=== PATIENT | female | born 1980 | race Caucasian/White ===

== ENCOUNTER → 2017-09-18 11:46 | Outpatient (CLI) | payer OTHER, MEDICAID, SELFPAY ==
[2017-09-18 13:05] LABS: Add Manual Diff / Slide Review NO; Basophils Percent Auto 1.1 % (0-2); Eosinophils Percent Auto 1.3 % (2-4); Hematocrit 41.8 % (36-46); Lymphocytes Percent Auto 26.9 % (25-40); Mean Corpuscular HGB Conc 33.6 % (30-36); Mean Corpuscular Hemoglobin 29.6 PG (26-34); Monocytes Percent Auto 4.8 % (3-14); Neutrophils Absolute Auto 5500 /uL (3000-5900); Neutrophils Percent Auto 65.9 % (50-75); Platelet Count 475 X10^3/uL (150-400); Red Blood Cell Count 4.75 X10^6/uL (4.0-5.2); Red Cell Distribution Width 14.1 % (11.6-14.8); White Blood Cell Count 8.4 X10^3/uL (4.5-11.0)
[2017-09-18 13:21] LABS: Alanine Aminotransferase 21 IU/L (9-52); Albumin 4.4 g/dL (3.5-5.0); Albumin Globulin Ratio 1.1 (1.0-2.8); Alkaline Phosphatase 74 U/L (38-126); Aspartate Aminotransferase 20 IU/L (14-36); BUN Creatinine Ratio 13.3 (6-22); Bilirubin Total 0.4 mg/dL (0.2-1.3); Blood Urea Nitrogen 8 mg/dL (7-17); Calcium 9.8 mg/dL (8.4-10.2); Carbon Dioxide 26 mmol/L (22-32); Chloride 104 mmol/L (98-107); Estimated Glomerular Filt Rate > 60.0 mL/min (>60); Globulin 3.9 g/dL (1.7-4.1); Glucose 119 mg/dL (70-100); HEMOLYSIS 17 (0-50); Potassium 4.2 mmol/L (3.4-5.1); Sodium 142 mmol/L (137-145); Total Protein 8.3 g/dL (6.3-8.2)
[2017-09-18 13:24] LABS: C-Reactive Protein Quant < 0.5 mg/dL (<1.0)
[2017-09-18 13:54] LABS: Erythrocyte Sedimentation Rate 27 MM/HR (0-20)
[2017-09-18 15:40] LABS: TSH w/ Reflex to FT4 1.29 uIU/mL (0.47-4.68)
== END ==
PROVIDERS: Family Provider Family Medicine; PCP Family Medicine; Visit Provider Family Medicine
DX: R52 Pain, unspecified (principal)
CPT/HCPCS: 36415; 80053; 84443; 85025; 85651; 86140

== ENCOUNTER 2018-04-30 15:35 | Emergency (ER) | payer OTHER, MEDICAID, SELFPAY ==
[2018-04-30 15:45] VITALS: BP 147/90; PULSE 96; RESP 14; TEMP 36.8; O2SAT 100
--- NOTE | 2018-04-30 16:32 | ED.BACK ---
HPI - Back Pain/Injury <Emily Villalobos PA-C - Last Filed: 04/30/18 21:50> General Chief Complaint: Back Pain/Injury Stated Complaint: spine feels like its tingling x4-5 days Time Seen by Provider: 04/30/18 16:16 Source: patient Mode of arrival: ambulatory Limitations: no limitations History of Present Illness HPI Narrative: This 38-year-old female comes to ED today due to persistent tingling and pain in her back along with a hard time walking for about 6 days. She states that she kind of feels like her left leg is numb or asleep and that she is dragging it, which makes her unstable when she walks. She states that the pain in her back seems focused between her lower shoulder blades, however it can radiate up into her upper back or down into her tailbone, tends to stay in the midline. She states that she can have pain down her left leg as well. She denies acute bowel or bladder changes and has been urinating normally. She denies any numbness in the groin. She denies any new fever or rash. No new joint swelling. She states that she does have history of multiple herniated discs in her back, not sure which levels but thinks in her low back. She has cervical and lumbar degenerative disc disease. She states that the symptoms have some resemblance to previous sciatica though typically have not lasted this long. She denies any new trauma at all. She states that she has felt somewhat dizzy or off balance when she goes to get up, a little bit like vertigo but she also feels like her legs make her unstable so difficult for her to tell. She has chronic migraine and unrelenting daily headache and tends to have some intermittent left-sided facial numbness with these. No acute changes. She states that she came in today mainly due to pain. She has been taking her gabapentin as well as acetaminophen at home and using ice and this is not helping. She notes that she has been following some of these issues with her PCP and is seeing Neurology and also referred to Rheumatology. She states that she has been question about MS in past but has not had workup. Related Data Home Medications Medication Instructions Recorded Confirmed [PHENERGAN] 25 mg PO PRN PRN #0 05/06/16 amitriptyline 25 mg PO HS #0 05/06/16 cyclobenzaprine 10 mg PO PRN PRN #0 05/06/16 nortriptyline [Pamelor] 30 mg PO HS #0 10/19/16 prochlorperazine maleate 10 mg PO PRN PRN #0 10/19/16 [Compazine] gabapentin [Neurontin] 300 mg PO TID #0 12/18/16 cholecalciferol (vitamin D3) 5,000 unit PO QDAY #0 04/19/17 oxybutynin chloride [Ditropan XL] 15 mg PO QDAY #0 04/19/17 Previous Rx's Medication Instructions Recorded dicyclomine 10 mg PO Q4HP PRN #60 cap 10/19/16 meloxicam 15 mg PO DAILY #20 tab 04/30/18 oxycodone-acetaminophen 1 tab PO Q6H PRN #7 tab 04/30/18 Allergies Allergy/AdvReac Type Severity Reaction Status Date / Time Sulfa (Sulfonamide Allergy Severe HIVES, Unverified 07/07/17 12:40 Antibiotics) ITCHY [SULFA (SULFONAMIDE THROAT ANTIBIOTICS)] FEELS LIKE IT WILL CLOSE UP hydrocodone [From VICODIN] AdvReac Intermediate DOESN'T Unverified 07/07/17 12:40 GIVE PAIN RELIEF, SEVERE NAUSEA Review of Systems <Emily Villalobos PA-C - Last Filed: 04/30/18 21:50> Review of Systems ROS Unobtainable: All systems reviewed & are unremarkable except as noted in HPI and below Exam <Emily Villalobos PA-C - Last Filed: 04/30/18 21:50> Narrative Exam Narrative: GENERAL APPEARANCE: Patient sitting comfortably, in no distress. HEENT: PERRL, EOMI, normal TMs and oropharynx, no sinus TTP NECK: Supple LUNGS: Clear to auscultation bilaterally. HEART: Rate and rhythm regular without murmur, normal S1 and S2, no S3 or S4. NEUROLOGIC: cranial nerves III-XII grossly intact, Alert and oriented, normal speech, and coordination. upper and lower extremity DTRs 2+ throughout the MUSCULOSKELETAL: Full Csp AROM without tenderness. Tender throughout the midthoracic and lumbar spine and musculature. Normal trunk flexion. 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 She lifts the left leg with her hands to flex her hip and swing the leg over the bed, but is able to put it back on the bed unassisted. Lower extremity strength 5/5 throughout bilateral hip flexors, knee extensors, foot plantar flexion. Positive left modified straight leg raise. DERMATOLOGIC: No exanthem Initial Vital Signs Initial Vital Signs: Vital Signs Temperature 98.2 F 04/30/18 15:45 Pulse Rate 96 H 04/30/18 15:45 Respiratory Rate 14 04/30/18 15:45 Blood Pressure 147/90 H 04/30/18 15:45 Pulse Oximetry 100 04/30/18 15:45 <Rex Flores DO - Last Filed: 05/01/18 07:14> Initial Vital Signs Initial Vital Signs: Vital Signs Temperature 98.2 F 04/30/18 15:45 Pulse Rate 96 H 04/30/18 15:45 Respiratory Rate 14 04/30/18 15:45 Blood Pressure 147/90 H 04/30/18 15:45 Pulse Oximetry 100 04/30/18 15:45 Course <Emily Villalobos PA-C - Last Filed: 04/30/18 21:50> Additional Information: Reviewed exam findings today with Dr. Flores, neurologically normal, consistent with left-sided sciatica. Prior to departure she is feeling improved and sitting in a chair. Discussed with patient following up with Neurology and evaluation for MS given her ongoing symptoms, and apparently this has been discussed with her already. No acute findings in her labwork aside from mild ESR elevation which she states is chronic. We decided to help with pain management over the weekend, and she will follow up with PCP on Wednesday and also talk with her neurologist. She agreed to return if any acutely worsening symptoms over the weekend, or concerning symptoms such as groin numbness or urinary retention. Orders Ordered: Discontinued Medications Ketorolac Tromethamine (Toradol) 60 mg IM NOW ONE Stop: 04/30/18 16:50 Last Admin: 04/30/18 17:02 Dose: 60 mg Oxycodone/Acetaminophen (Percocet 5/325) 1 tab PO NOW ONE Stop: 04/30/18 16:58 Last Admin: 04/30/18 17:02 Dose: 1 tab Oxycodone/Acetaminophen (Endocet 5/325 Prepack) 1 bottle MISC SEEINSTR ONE Stop: 04/30/18 18:53 Last Admin: 04/30/18 19:24 Dose: 1 bottle Vital Signs - 8 hr 04/30/18 15:45 04/30/18 17:30 04/30/18 18:30 Temperature 98.2 F Pulse Rate 96 H 80 Respiratory Rate 14 16 Blood Pressure 147/90 H Blood Pressure [Left Arm] 111/71 123/79 Pulse Oximetry 100 98 04/30/18 18:58 Temperature Pulse Rate 89 Respiratory Rate 18 Blood Pressure Blood Pressure [Left Arm] 123/79 Pulse Oximetry 97 <Rex Flores DO - Last Filed: 05/01/18 07:14> Orders Ordered: Discontinued Medications Ketorolac Tromethamine (Toradol) 60 mg IM NOW ONE Stop: 04/30/18 16:50 Last Admin: 04/30/18 17:02 Dose: 60 mg Oxycodone/Acetaminophen (Percocet 5/325) 1 tab PO NOW ONE Stop: 04/30/18 16:58 Last Admin: 04/30/18 17:02 Dose: 1 tab Oxycodone/Acetaminophen (Endocet 5/325 Prepack) 1 bottle MISC SEEINSTR ONE Stop: 04/30/18 18:53 Last Admin: 04/30/18 19:24 Dose: 1 bottle Vital Signs - 8 hr 04/30/18 15:45 04/30/18 17:30 04/30/18 18:30 Temperature 98.2 F Pulse Rate 96 H 80 Respiratory Rate 14 16 Blood Pressure 147/90 H Blood Pressure [Left Arm] 111/71 123/79 Pulse Oximetry 100 98 04/30/18 18:58 Temperature Pulse Rate 89 Respiratory Rate 18 Blood Pressure Blood Pressure [Left Arm] 123/79 Pulse Oximetry 97 MDM - Back Pain/Injury <Emily Villalobos PA-C - Last Filed: 04/30/18 21:50> Lab Data Result diagrams: 04/30/18 17:10 04/30/18 17:10 Lab Results 04/30/18 04/30/18 Range/Units 17:10 17:10 WBC 8.6 (4.5-11.0) X10^3/uL RBC 4.85 (4.0-5.2) X10^6/uL Hgb 14.3 (12.0-16.0) g/dL Hct 43.3 (36-46) % MCV 89.2 (80-100) fL MCH 29.6 (26-34) PG MCHC 33.1 (30-36) % RDW 13.9 (11.6-14.8) % Plt Count 450 H (150-400) X10^3/uL Neut % (Auto) 62.5 (50-75) % Lymph % (Auto) 27.8 (25-40) % [place] % (Auto) 7.8 (3-14) % Eos % (Auto) 0.8 L (2-4) % Baso % (Auto) 1.1 (0-2) % Neut # (Auto) 5400 (9256-8443) /uL Lymph # (Auto) 2400 (1635-5034) /uL [place] # (Auto) 700 (0-900) /uL Eos # (Auto) 100 (0-450) /uL Baso # (Auto) 100 (0-100) /uL ESR 37 H (0-20) MM/HR Sodium 140 (137-145) mmol/L Potassium 4.0 (3.4-5.1) mmol/L Chloride 106 (98-107) mmol/L Carbon Dioxide 22 (22-32) mmol/L BUN 9 (7-17) mg/dL Creatinine 0.60 (0.52-1.04) mg/dL Estimated GFR > 60.0 (>60) mL/min BUN/Creatinine Ratio 15.0 (6-22) Glucose 100 (70-100) mg/dL Calcium 10.0 (8.4-10.2) mg/dL Total Bilirubin 0.3 (0.2-1.3) mg/dL AST 19 (14-36) IU/L ALT 21 (9-52) IU/L Alkaline Phosphatase 76 (38-126) U/L C-Reactive Protein < 0.5 (<1.0) mg/dL Total Protein 8.4 H (6.3-8.2) g/dL Albumin 4.6 (3.5-5.0) g/dL Globulin 3.8 (1.7-4.1) g/dL Albumin/Globulin Ratio 1.2 (1.0-2.8) <Rex Flores DO - Last Filed: 05/01/18 07:14> Lab Data Lab Results 04/30/18 04/30/18 Range/Units 17:10 17:10 WBC 8.6 (4.5-11.0) X10^3/uL RBC 4.85 (4.0-5.2) X10^6/uL Hgb 14.3 (12.0-16.0) g/dL Hct 43.3 (36-46) % MCV 89.2 (80-100) fL MCH 29.6 (26-34) PG MCHC 33.1 (30-36) % RDW 13.9 (11.6-14.8) % Plt Count 450 H (150-400) X10^3/uL Neut % (Auto) 62.5 (50-75) % Lymph % (Auto) 27.8 (25-40) % [place] % (Auto) 7.8 (3-14) % Eos % (Auto) 0.8 L (2-4) % Baso % (Auto) 1.1 (0-2) % Neut # (Auto) 5400 (4368-5014) /uL Lymph # (Auto) 2400 (9978-7514) /uL [place] # (Auto) 700 (0-900) /uL Eos # (Auto) 100 (0-450) /uL Baso # (Auto) 100 (0-100) /uL ESR 37 H (0-20) MM/HR Sodium 140 (137-145) mmol/L Potassium 4.0 (3.4-5.1) mmol/L Chloride 106 (98-107) mmol/L Carbon Dioxide 22 (22-32) mmol/L BUN 9 (7-17) mg/dL Creatinine 0.60 (0.52-1.04) mg/dL Estimated GFR > 60.0 (>60) mL/min BUN/Creatinine Ratio 15.0 (6-22) Glucose 100 (70-100) mg/dL Calcium 10.0 (8.4-10.2) mg/dL Total Bilirubin 0.3 (0.2-1.3) mg/dL AST 19 (14-36) IU/L ALT 21 (9-52) IU/L Alkaline Phosphatase 76 (38-126) U/L C-Reactive Protein < 0.5 (<1.0) mg/dL Total Protein 8.4 H (6.3-8.2) g/dL Albumin 4.6 (3.5-5.0) g/dL Globulin 3.8 (1.7-4.1) g/dL Albumin/Globulin Ratio 1.2 (1.0-2.8) Discharge Plan Departure Patient Disposition: Home Clinical Impression: Multilevel spine pain, Sciatica, Paresthesia Discharge Date/Time: 04/30/18 19:30 Interventions: ED Discharge Assessment Last Done: 04/30/18 19:30 Instructions: DI for Back Pain With Sciatica, DI for Numbness/tingling Activity Restrictions/Additional Instructions: Please return as we talked about if you have acutely worsening symptoms. The source of your pain is not exactly clear. Neurologically, you appears stable but it seems most like the pain is from a nerve source. As you have talked about previously, it is certainly reasonable to evaluate for MS, so please talk with your neurologist about this. Since you are feeling a little bit more comfortable now, I think it is okay to continue pain medicine and monitor this weekend. 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 Please try this since ibuprofen has not been effective. I have also prescribed a little bit Percocet for you to have until you can talk with your PCP on Wednesday. You may also take an additional gabapentin this evening to see if that is helpful, and you can continue an additional 1 daily if that seems to help your pain. Please remember that these medicines can make you sleepy and not to drive while taking them. Prescriptions: New meloxicam 15 mg tablet 15 mg PO DAILY Qty: 20 RF: 0 oxycodone-acetaminophen 5-325 mg tablet 1 tab PO Q6H PRN (Reason: acute back pain/sciatica) Qty: 7 RF: 0 No Action cyclobenzaprine 10 MG tablet 10 mg PO PRN PRNQty: 0 RF: 0 amitriptyline 25 MG tablet 25 mg PO HS Qty: 0 RF: 0 [PHENERGAN] 25 mg PO PRN PRNQty: 0 RF: 0 prochlorperazine maleate [Compazine] 10 MG tablet 10 mg PO PRN PRNQty: 0 RF: 0 nortriptyline [Pamelor] 10 MG capsule 30 mg PO HS Qty: 0 RF: 0 dicyclomine 10 MG capsule 10 mg PO Q4HP PRNQty: 60 RF: 3 gabapentin [Neurontin] 300 MG capsule 300 mg PO TID Qty: 0 RF: 0 oxybutynin chloride [Ditropan XL] 15 MG tablet extended release 24hr 15 mg PO QDAY Qty: 0 RF: 0 cholecalciferol (vitamin D3) 5,000 UNIT capsule 5,000 unit PO QDAY Qty: 0 RF: 0 Referrals: Genevieve Boroke MD [Primary Care Provider] - Chencho Ornelas MD [Non-Staff] - <eRx Flores DO - Last Filed: 05/01/18 07:14> Cosign ED Attending Audraature Attestation: I was available for consultation during this patient's emergency department encounter
[2018-04-30] MEDS: OXYCODONE/ACETAMINOPHEN 5/325 TABLET 1 TAB PO (17:02)
[2018-04-30] MEDS: KETOROLAC 60 MG/2 ML VIAL IM (17:02)
--- NOTE | 2018-04-30 17:21 | ED_ITS ---
HPI - Back Pain/Injury <Emily Villalobos PA-C - Last Filed: 04/30/18 21:50> General Chief Complaint: Back Pain/Injury Stated Complaint: spine feels like its tingling x4-5 days Time Seen by Provider: 04/30/18 16:16 Source: patient Mode of arrival: ambulatory Limitations: no limitations History of Present Illness HPI Narrative: This 38-year-old female comes to ED today due to persistent tingling and pain in her back along with a hard time walking for about 6 days. She states that she kind of feels like her left leg is numb or asleep and that she is dragging it, which makes her unstable when she walks. She states that the pain in her back seems focused between her lower shoulder blades , however it can radiate up into her upper back or down into her tailbone, tends to stay in the midline. She states that she can have pain down her left leg as well. She denies acute bowel or bladder changes and has been urinating normally. She denies any numbness in the groin. She denies any new fever or rash. No new joint swelling. She states that she does have history of multiple herniated discs in her back, not sure which levels but thinks in her low back. She has cervical and lumbar degenerative disc disease. She states that the symptoms have some resemblance to previous sciatica though typically have not lasted this long. She denies any new trauma at all. She states that she has felt somewhat dizzy or off balance when she goes to get up, a little bit like vertigo but she also feels like her legs make her unstable so difficult for her to tell. She has chronic migraine and unrelenting daily headache and tends to have some intermittent left-sided facial numbness with these. No acute changes. She states that she came in today mainly due to pain. She has been taking her gabapentin as well as acetaminophen at home and using ice and this is not helping. She notes that she has been following some of these issues with her PCP and is seeing Neurology and also referred to Rheumatology. She states that she has been question about MS in past but has not had workup. Related Data Home Medications Medication Instructions Recorded Confirmed [PHENERGAN] 25 mg PO PRN PRN #0 05/06/16 amitriptyline 25 mg PO HS #0 05/06/16 cyclobenzaprine 10 mg PO PRN PRN #0 05/06/16 nortriptyline [Pamelor] 30 mg PO HS #0 10/19/16 prochlorperazine maleate 10 mg PO PRN PRN #0 10/19/16 [Compazine] gabapentin [Neurontin] 300 mg PO TID #0 12/18/16 cholecalciferol (vitamin D3) 5,000 unit PO QDAY #0 04/19/17 oxybutynin chloride [Ditropan XL] 15 mg PO QDAY #0 04/19/17 Previous Rx's Medication Instructions Recorded dicyclomine 10 mg PO Q4HP PRN #60 cap 10/19/16 meloxicam 15 mg PO DAILY #20 tab 04/30/18 oxycodone-acetaminophen 1 tab PO Q6H PRN #7 tab 04/30/18 Allergies Allergy/AdvReac Type Severity Reaction Status Date / Time Sulfa (Sulfonamide Allergy Severe HIVES, Unverified 07/07/17 12:40 Antibiotics) ITCHY [SULFA (SULFONAMIDE THROAT ANTIBIOTICS)] FEELS LIKE IT WILL CLOSE UP hydrocodone [From VICODIN] AdvReac Intermediate DOESN'T Unverified 07/07/17 12: 40 GIVE PAIN RELIEF, SEVERE NAUSEA Review of Systems <Emily Villalobos PA-C - Last Filed: 04/30/18 21:50> Review of Systems ROS Unobtainable: All systems reviewed & are unremarkable except as noted in HPI and below Exam <Emily Villalobos PA-C - Last Filed: 04/30/18 21:50> Narrative Exam Narrative: GENERAL APPEARANCE: Patient sitting comfortably, in no distress. HEENT: PERRL, EOMI, normal TMs and oropharynx, no sinus TTP NECK: Supple LUNGS: Clear to auscultation bilaterally. HEART: Rate and rhythm regular without murmur, normal S1 and S2, no S3 or S4. NEUROLOGIC: cranial nerves III-XII grossly intact, Alert and oriented, normal speech, and coordination. upper and lower extremity DTRs 2+ throughout the MUSCULOSKELETAL: Full Csp AROM without tenderness. Tender throughout the midthoracic and lumbar spine and musculature. Normal trunk flexion. 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 She lifts the left leg with her hands to flex her hip and swing the leg over the bed, but is able to put it back on the bed unassisted. Lower extremity strength 5/5 throughout bilateral hip flexors, knee extensors, foot plantar flexion. Positive left modified straight leg raise. DERMATOLOGIC: No exanthem Initial Vital Signs Initial Vital Signs: Vital Signs Temperature 98.2 F 04/30/18 15:45 Pulse Rate 96 H 04/30/18 15:45 Respiratory Rate 14 04/30/18 15:45 Blood Pressure 147/90 H 04/30/18 15:45 Pulse Oximetry 100 04/30/18 15:45 <Rex Flores DO - Last Filed: 05/01/18 07:14> Initial Vital Signs Initial Vital Signs: Vital Signs Temperature 98.2 F 04/30/18 15:45 Pulse Rate 96 H 04/30/18 15:45 Respiratory Rate 14 04/30/18 15:45 Blood Pressure 147/90 H 04/30/18 15:45 Pulse Oximetry 100 04/30/18 15:45 Course <Emily Villalobos PA-C - Last Filed: 04/30/18 21:50> Additional Information: Reviewed exam findings today with Dr. Flores, neurologically normal, consistent with left-sided sciatica. Prior to departure she is feeling improved and sitting in a chair. Discussed with patient following up with Neurology and evaluation for MS given her ongoing symptoms, and apparently this has been discussed with her already. No acute findings in her labwork aside from mild ESR elevation which she states is chronic. We decided to help with pain management over the weekend, and she will follow up with PCP on Wednesday and also talk with her neurologist. She agreed to return if any acutely worsening symptoms over the weekend, or concerning symptoms such as groin numbness or urinary retention. Orders Ordered: Discontinued Medications Ketorolac Tromethamine (Toradol) 60 mg IM NOW ONE Stop: 04/30/18 16:50 Last Admin: 04/30/18 17:02 Dose: 60 mg Oxycodone/Acetaminophen (Percocet 5/325) 1 tab PO NOW ONE Stop: 04/30/18 16:58 Last Admin: 04/30/18 17:02 Dose: 1 tab Oxycodone/Acetaminophen (Endocet 5/325 Prepack) 1 bottle MISC SEEINSTR ONE Stop: 04/30/18 18:53 Last Admin: 04/30/18 19:24 Dose: 1 bottle Vital Signs - 8 hr 04/30/18 15:45 04/30/18 17:30 04/30/18 18:30 Temperature 98.2 F Pulse Rate 96 H 80 Respiratory Rate 14 16 Blood Pressure 147/90 H Blood Pressure [Left Arm] 111/71 123/79 Pulse Oximetry 100 98 04/30/18 18:58 Temperature Pulse Rate 89 Respiratory Rate 18 Blood Pressure Blood Pressure [Left Arm] 123/79 Pulse Oximetry 97 <Rex Flores DO - Last Filed: 05/01/18 07:14> Orders Ordered: Discontinued Medications Ketorolac Tromethamine (Toradol) 60 mg IM NOW ONE Stop: 04/30/18 16:50 Last Admin: 04/30/18 17:02 Dose: 60 mg Oxycodone/Acetaminophen (Percocet 5/325) 1 tab PO NOW ONE Stop: 04/30/18 16:58 Last Admin: 04/30/18 17:02 Dose: 1 tab Oxycodone/Acetaminophen (Endocet 5/325 Prepack) 1 bottle MISC SEEINSTR ONE Stop: 04/30/18 18:53 Last Admin: 04/30/18 19:24 Dose: 1 bottle Vital Signs - 8 hr 04/30/18 15:45 04/30/18 17:30 04/30/18 18:30 Temperature 98.2 F Pulse Rate 96 H 80 Respiratory Rate 14 16 Blood Pressure 147/90 H Blood Pressure [Left Arm] 111/71 123/79 Pulse Oximetry 100 98 04/30/18 18:58 Temperature Pulse Rate 89 Respiratory Rate 18 Blood Pressure Blood Pressure [Left Arm] 123/79 Pulse Oximetry 97 MDM - Back Pain/Injury <Emily Villalobos PA-C - Last Filed: 04/30/18 21:50> Lab Data Result diagrams: 04/30/18 17:10 04/30/18 17:10 Lab Results 04/30/18 04/30/18 Range/Units 17:10 17:10 WBC 8.6 (4.5-11.0) X10^3/uL RBC 4.85 (4.0-5.2) X10^6/uL Hgb 14.3 (12.0-16.0) g/dL Hct 43.3 (36-46) % MCV 89.2 (80-100) fL MCH 29.6 (26-34) PG MCHC 33.1 (30-36) % RDW 13.9 (11.6-14.8) % Plt Count 450 H (150-400) X10^3/uL Neut % (Auto) 62.5 (50-75) % Lymph % (Auto) 27.8 (25-40) % Todd % (Auto) 7.8 (3-14) % Eos % (Auto) 0.8 L (2-4) % Baso % (Auto) 1.1 (0-2) % Neut # (Auto) 5400 (6588-1976) /uL Lymph # (Auto) 2400 (0471-1789) /uL Todd # (Auto) 700 (0-900) /uL Eos # (Auto) 100 (0-450) /uL Baso # (Auto) 100 (0-100) /uL ESR 37 H (0-20) MM/HR Sodium 140 (137-145) mmol/L Potassium 4.0 (3.4-5.1) mmol/L Chloride 106 (98-107) mmol/L Carbon Dioxide 22 (22-32) mmol/L BUN 9 (7-17) mg/dL Creatinine 0.60 (0.52-1.04) mg/dL Estimated GFR > 60.0 (>60) mL/min BUN/Creatinine Ratio 15.0 (6-22) Glucose 100 (70-100) mg/dL Calcium 10.0 (8.4-10.2) mg/dL Total Bilirubin 0.3 (0.2-1.3) mg/dL AST 19 (14-36) IU/L ALT 21 (9-52) IU/L Alkaline Phosphatase 76 (38-126) U/L C-Reactive Protein < 0.5 (<1.0) mg/dL Total Protein 8.4 H (6.3-8.2) g/dL Albumin 4.6 (3.5-5.0) g/dL Globulin 3.8 (1.7-4.1) g/dL Albumin/Globulin Ratio 1.2 (1.0-2.8) <Rex Flores DO - Last Filed: 05/01/18 07:14> Lab Data Lab Results 04/30/18 04/30/18 Range/Units 17:10 17:10 WBC 8.6 (4.5-11.0) X10^3/uL RBC 4.85 (4.0-5.2) X10^6/uL Hgb 14.3 (12.0-16.0) g/dL Hct 43.3 (36-46) % MCV 89.2 (80-100) fL MCH 29.6 (26-34) PG MCHC 33.1 (30-36) % RDW 13.9 (11.6-14.8) % Plt Count 450 H (150-400) X10^3/uL Neut % (Auto) 62.5 (50-75) % Lymph % (Auto) 27.8 (25-40) % Todd % (Auto) 7.8 (3-14) % Eos % (Auto) 0.8 L (2-4) % Baso % (Auto) 1.1 (0-2) % Neut # (Auto) 5400 (4305-0500) /uL Lymph # (Auto) 2400 (1634-9542) /uL Todd # (Auto) 700 (0-900) /uL Eos # (Auto) 100 (0-450) /uL Baso # (Auto) 100 (0-100) /uL ESR 37 H (0-20) MM/HR Sodium 140 (137-145) mmol/L Potassium 4.0 (3.4-5.1) mmol/L Chloride 106 (98-107) mmol/L Carbon Dioxide 22 (22-32) mmol/L BUN 9 (7-17) mg/dL Creatinine 0.60 (0.52-1.04) mg/dL Estimated GFR > 60.0 (>60) mL/min BUN/Creatinine Ratio 15.0 (6-22) Glucose 100 (70-100) mg/dL Calcium 10.0 (8.4-10.2) mg/dL Total Bilirubin 0.3 (0.2-1.3) mg/dL AST 19 (14-36) IU/L ALT 21 (9-52) IU/L Alkaline Phosphatase 76 (38-126) U/L C-Reactive Protein < 0.5 (<1.0) mg/dL Total Protein 8.4 H (6.3-8.2) g/dL Albumin 4.6 (3.5-5.0) g/dL Globulin 3.8 (1.7-4.1) g/dL Albumin/Globulin Ratio 1.2 (1.0-2.8) Discharge Plan Departure Patient Disposition: Home Clinical Impression: Multilevel spine pain, Sciatica, Paresthesia Discharge Date/Time: 04/30/18 19:30 Interventions: ED Discharge Assessment Last Done: 04/30/18 19:30 Instructions: DI for Back Pain With Sciatica, DI for Numbness/tingling Activity Restrictions/Additional Instructions: Please return as we talked about if you have acutely worsening symptoms. The source of your pain is not exactly clear. Neurologically, you appears stable but it seems most like the pain is from a nerve source. As you have talked about previously, it is certainly reasonable to evaluate for MS, so please talk with your neurologist about this. Since you are feeling a little bit more comfortable now, I think it is okay to continue pain medicine and monitor this weekend. 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 Please try this since ibuprofen has not been effective. I have also prescribed a little bit Percocet for you to have until you can talk with your PCP on Wednesday. You may also take an additional gabapentin this evening to see if that is helpful, and you can continue an additional 1 daily if that seems to help your pain. Please remember that these medicines can make you sleepy and not to drive while taking them. Prescriptions: New meloxicam 15 mg tablet 15 mg PO DAILY Qty: 20 RF: 0 oxycodone-acetaminophen 5-325 mg tablet 1 tab PO Q6H PRN (Reason: acute back pain/sciatica) Qty: 7 RF: 0 No Action cyclobenzaprine 10 MG tablet 10 mg PO PRN PRNQty: 0 RF: 0 amitriptyline 25 MG tablet 25 mg PO HS Qty: 0 RF: 0 [PHENERGAN] 25 mg PO PRN PRNQty: 0 RF: 0 prochlorperazine maleate [Compazine] 10 MG tablet 10 mg PO PRN PRNQty: 0 RF: 0 nortriptyline [Pamelor] 10 MG capsule 30 mg PO HS Qty: 0 RF: 0 dicyclomine 10 MG capsule 10 mg PO Q4HP PRNQty: 60 RF: 3 gabapentin [Neurontin] 300 MG capsule 300 mg PO TID Qty: 0 RF: 0 oxybutynin chloride [Ditropan XL] 15 MG tablet extended release 24hr 15 mg PO QDAY Qty: 0 RF: 0 cholecalciferol (vitamin D3) 5,000 UNIT capsule 5,000 unit PO QDAY Qty: 0 RF: 0 Referrals: Genevieve Brooke MD [Primary Care Provider] - Chencho Ornelas MD [Non-Staff] - <Rex Flores DO - Last Filed: 05/01/18 07:14> Cosign ED Attending Audraature Attestation: I was available for consultation during this patient's emergency department encounter
[2018-04-30 17:23] LABS: Add Manual Diff / Slide Review NO; Basophils Absolute Auto 100 /uL (0-100); Basophils Percent Auto 1.1 % (0-2); Eosinophils Absolute Auto 100 /uL (0-450); Eosinophils Percent Auto 0.8 % (2-4); Hematocrit 43.3 % (36-46); Hemoglobin 14.3 g/dL (12.0-16.0); Lymphocytes Absolute Auto 2400 /uL (1100-4500); Lymphocytes Percent Auto 27.8 % (25-40); Mean Corpuscular HGB Conc 33.1 % (30-36); Mean Corpuscular Hemoglobin 29.6 PG (26-34); Mean Corpuscular Volume 89.2 fL (80-100); Monocytes Absolute Auto 700 /uL (0-900); Monocytes Percent Auto 7.8 % (3-14); Neutrophils Absolute Auto 5400 /uL (1500-7000); Neutrophils Percent Auto 62.5 % (50-75); Platelet Count 450 X10^3/uL (150-400); Red Blood Cell Count 4.85 X10^6/uL (4.0-5.2); Red Cell Distribution Width 13.9 % (11.6-14.8); White Blood Cell Count 8.6 X10^3/uL (4.5-11.0)
[2018-04-30 17:30] VITALS: BP 111/71; PULSE 80; RESP 16; O2SAT 98
[2018-04-30 17:40] LABS: Alanine Aminotransferase 21 IU/L (9-52); Albumin 4.6 g/dL (3.5-5.0); Albumin Globulin Ratio 1.2 (1.0-2.8); Alkaline Phosphatase 76 U/L (38-126); Aspartate Aminotransferase 19 IU/L (14-36); Bilirubin Total 0.3 mg/dL (0.2-1.3); Blood Urea Nitrogen 9 mg/dL (7-17); Carbon Dioxide 22 mmol/L (22-32); Chloride 106 mmol/L (98-107); Estimated Glomerular Filt Rate > 60.0 mL/min (>60); Globulin 3.8 g/dL (1.7-4.1); Glucose 100 mg/dL (70-100); HEMOLYSIS < 15 (0-50); Sodium 140 mmol/L (137-145); Total Protein 8.4 g/dL (6.3-8.2)
[2018-04-30 17:43] LABS: C-Reactive Protein Quant < 0.5 mg/dL (<1.0)
[2018-04-30 18:02] LABS: Erythrocyte Sedimentation Rate 37 MM/HR (0-20)
[2018-04-30 18:30] VITALS: BP 123/79
[2018-04-30 18:58] VITALS: BP 123/79; PULSE 89; RESP 18; O2SAT 97
[2018-04-30] MEDS: OXYCODONE/APAP 5/325 PREPACK 1 BOTTLE MISC (19:24)
== END 2018-04-30 19:30 | disposition home or self-care (01) ==
PROVIDERS: Emergency Provider Internal Medicine; Family Provider Family Medicine; PCP Family Medicine
DX: M54.9 Dorsalgia, unspecified (principal); M54.30 Sciatica, unspecified side; R20.0 Anesthesia of skin
CPT/HCPCS: 80053; 85025; 85651; 86140; 96372; 99283; J1885

== ENCOUNTER 2018-07-17 15:52 | Emergency (ER) | payer OTHER, MEDICAID, SELFPAY ==
[2018-07-17 15:55] VITALS: BP 135/91; PULSE 97; RESP 18; TEMP 36.8; O2SAT 100
--- NOTE | 2018-07-17 16:01 | DI.RAD.S_ITS ---
PROCEDURE: XR ANKLE RT 2V INDICATIONS: medial ankle pain, swelling, no known injury TECHNIQUE: 2 views of the ankle were acquired. COMPARISON: None. FINDINGS: Bones: No fractures or dislocations. Ankle mortise is normally aligned. No suspicious bony lesions. Soft tissues: No tibiotalar joint effusion. Achilles tendon appears normal. IMPRESSION: No acute bony abnormality of the right ankle. Dictated by: Abner James M.D. on 07/17/2018 at 16:59 Approved by: Abner James M.D. on 07/17/2018 at 17:00
--- NOTE | 2018-07-17 16:53 | ED.EXTPRO ---
HPI - Extremity Problem <NELDA Burns - Last Filed: 07/17/18 17:19> General Chief complaint: Extremity Problem,Nontraumatic Stated complaint: states serious pain of right ankle,about a week Time Seen by Provider: 07/17/18 16:39 Source: patient Mode of arrival: wheelchair Limitations: no limitations History of Present Illness HPI Narrative: R ankle pain x1 week, denies any injury/trauma MD Complaint: extremity pain (R ankle) Onset (ago): week(s) (1) Pain Consistency: constant Location: right Quality: burning and constant Radiation: other (pain shoots up ankle) Relieving factors: nothing Exacerbating factors: range of motion, weight bearing, walking and palpation Associated symptoms: denies other symptoms Context: other (none) Related Data Home Medications Medication Instructions Recorded Confirmed [PHENERGAN] 25 mg PO PRN PRN #0 05/06/16 amitriptyline 25 mg PO HS #0 05/06/16 cyclobenzaprine 10 mg PO PRN PRN #0 05/06/16 nortriptyline [Pamelor] 30 mg PO HS #0 10/19/16 prochlorperazine maleate 10 mg PO PRN PRN #0 10/19/16 [Compazine] gabapentin [Neurontin] 300 mg PO TID #0 12/18/16 cholecalciferol (vitamin D3) 5,000 unit PO QDAY #0 04/19/17 oxybutynin chloride [Ditropan XL] 15 mg PO QDAY #0 04/19/17 Previous Rx's Medication Instructions Recorded dicyclomine 10 mg PO Q4HP PRN #60 cap 10/19/16 meloxicam 15 mg PO DAILY #20 tab 04/30/18 oxycodone-acetaminophen 1 tab PO Q6H PRN #7 tab 04/30/18 cephalexin [Keflex] 500 mg PO BID #20 cap 07/17/18 colchicine 0.6 mg PO BID 3 Days #6 tab 07/17/18 Allergies Allergy/AdvReac Type Severity Reaction Status Date / Time Sulfa (Sulfonamide Allergy Severe HIVES, Unverified 07/07/17 12:40 Antibiotics) ITCHY [SULFA (SULFONAMIDE THROAT ANTIBIOTICS)] FEELS LIKE IT WILL CLOSE UP hydrocodone [From VICODIN] AdvReac Intermediate DOESN'T Unverified 07/07/17 12:40 GIVE PAIN RELIEF, SEVERE NAUSEA Review of Systems <NELDA Burns - Last Filed: 07/17/18 17:19> Review of Systems ROS Unobtainable: All systems reviewed & are unremarkable except as noted in HPI and below Constitutional Reports as per HPI, Reports system reviewed and no additional complaints, except as docu and Denies weakness ENT Ears, Nose, Mouth, and Throat: Denies neck pain Musculoskeletal Reports as per HPI, Reports abnormal gait, Denies back pain, Denies deformity, Reports limited range of motion, Denies muscle weakness, Denies neck pain and Denies numbness Integumentary/Breasts Reports as per HPI, Reports skin pain, Denies unusual bruising and Denies wounds Neurologic Reports abnormal gait, Denies numbness and Denies weakness PFSH <NELDA Burns - Last Filed: 07/17/18 17:19> Medical History Chronic migraine (Chronic) Degenerative disc disease, cervical (Chronic) Degenerative disc disease, lumbar (Chronic) Fibromyalgia (Chronic) Herniated lumbar intervertebral disc (Chronic) IBS (irritable bowel syndrome) (Chronic) Overactive bladder (Chronic) Surgical History Status post hysterectomy (Resolved) Family History (Updated 05/10/16 @ 00:00 by Conversion Provider) Child Age: 15 Generalized headaches Child Age: 11 Generalized headaches Social History (Updated 04/30/18 @ 17:18 by Emily Villalobos PA-C) Smoking Status: Current every day smoker additional social history: nonsmoker, no ETOH Family History Child Age: 15 Generalized headaches Child Age: 11 Generalized headaches Social History Smoking Status: Current every day smoker additional social history: nonsmoker, no ETOH Exam <NELDA Burns - Last Filed: 07/17/18 17:19> Initial Vital Signs Initial Vital Signs: Vital Signs Temperature 98.2 F 07/17/18 15:55 Pulse Rate 97 H 07/17/18 15:55 Respiratory Rate 18 07/17/18 15:55 Blood Pressure 135/91 H 07/17/18 15:55 Pulse Oximetry 100 07/17/18 15:55 Const General: cooperative, healthy appearing, comfortable, well developed and well groomed Orientation: alert, awake and oriented x3 HENMT Head: normal to inspection and normocephalic Ears: hearing grossly normal bilaterally Nose: external nose normal Face and sinus: normal facial exam Eyes General: appearance normal, both eyes and all related structures Visual Hunter: normal visual hunter by confrontation Eyelids: eyelids normal Pupils: PERRL Neck Neck: normal visual inspection, full ROM and trachea midline Resp Effort & Inspection: normal respiratory effort and able to speak in complete sentences Back/Spine/Pelvis Back: normal to inspection Cervical Spine: cervical ROM normal Thoracic/Lumbar Spine: thoraco-lumbar ROM normal Skin General: no rashes or lesions noted, elasticity normal, turgor normal, erythema and warm Rashes: no rashes Other: 2cm circular area near the medial malleolus Neuro General: alert, awake and oriented x3 Cranial Nerves: CN's II-XI intact bilaterally Cognition: normal cognition Speech: speech normal Motor: muscle tone normal throughout Sensory Exam: no sensory deficits noted Extrem General: normal to inspection, full ROM, capillary refill normal and limp Right upper extremity: normal to inspection and full ROM Left upper extremity: normal to inspection and full ROM Right lower extremity: normal capillary refill and ankle Details: tenderness, swelling, abnormal ROM (secondary to pain) and warmth; abnormal to inspection and ROM limited Left lower extremity: normal to inspection and full ROM Psych Appearance: grossly normal and well kempt Mental Status: mental status grossly normal Mood: congruent mood Affect: normal affect Attitude: cooperative Thought Process: normal Thought Content: normal Judgment: judgment good <Christine Brown DO - Last Filed: 07/18/18 07:50> Initial Vital Signs Initial Vital Signs: Vital Signs Temperature 98.2 F 07/17/18 15:55 Pulse Rate 97 H 07/17/18 15:55 Respiratory Rate 18 07/17/18 15:55 Blood Pressure 135/91 H 07/17/18 15:55 Pulse Oximetry 100 07/17/18 15:55 Course <NELDA Burns - Last Filed: 07/17/18 17:19> Orders Ordered: Discontinued Medications Ketorolac Tromethamine (Toradol) 60 mg IM NOW ONE Stop: 07/17/18 16:54 Last Admin: 07/17/18 17:15 Dose: 60 mg Vital Signs - 8 hr 07/17/18 15:55 Temperature 98.2 F Pulse Rate 97 H Respiratory Rate 18 Blood Pressure 135/91 H Pulse Oximetry 100 <Christine Brown DO - Last Filed: 07/18/18 07:50> Orders Ordered: Discontinued Medications Ketorolac Tromethamine (Toradol) 60 mg IM NOW ONE Stop: 07/17/18 16:54 Last Admin: 07/17/18 17:15 Dose: 60 mg Vital Signs - 8 hr 07/17/18 15:55 Temperature 98.2 F Pulse Rate 97 H Respiratory Rate 18 Blood Pressure 135/91 H Pulse Oximetry 100 MDM - Extremity (Nontraumatic) <NELDA Burns - Last Filed: 07/17/18 17:19> Differential Diagnosis Likely gout, cellulitis, superficial thrombophlebitis, deep venous thrombosis of upper extremity, lower extremity edema, deep vein thrombosis of lower extremity and other (sprain, fx) Imaging Data ankle: Attestation: I personally reviewed and interpreted this imaging study as follows: My impression: neg Radiologist's impression: [address] [address] XRay Report Signed Patient: Connie Tilley#: [id number] : 1980Acct:[id number] Age/Sex: 38 / FDate of Service: 07/17/18 Loc: ED Accession Number: [id number] Procedure: XR ankle RT 2V Ordering Provider: Christine Brown D.O. PROCEDURE: XR ANKLE RT 2V INDICATIONS: medial ankle pain, swelling, no known injury TECHNIQUE: 2 views of the ankle were acquired. COMPARISON: None. FINDINGS: Bones: No fractures or dislocations. Ankle mortise is normally aligned. No suspicious bony lesions. Soft tissues: No tibiotalar joint effusion. Achilles tendon appears normal. IMPRESSION: No acute bony abnormality of the right ankle. Dictated by: Abner James M.D. on 07/17/2018 at 16:59 Approved by: Abner James M.D. on 07/17/2018 at 17:00 Discharge Plan Departure Patient Disposition: Home Clinical Impression: Gout Qualifiers: Gout site: ankle Gout etiology: unspecified cause Chronicity: acute Laterality: right Qualified Code(s): M10.9 - Gout, unspecified Cellulitis Qualifiers: Site of cellulitis: extremity Site of cellulitis of extremity: lower extremity Laterality: right Qualified Code(s): L03.115 - Cellulitis of right lower limb Discharge Date/Time: 07/17/18 17:35 Interventions: ED Discharge Assessment Last Done: 07/17/18 17:35 Instructions: DI for Cellulitis -- Adult, DI for Gout Prescriptions: New cephalexin [Keflex] 500 mg capsule 500 mg PO BID Qty: 20 RF: 0 colchicine 0.6 mg tablet 0.6 mg PO BID 3 Days Qty: 6 RF: 0 No Action cyclobenzaprine 10 MG tablet 10 mg PO PRN PRNQty: 0 RF: 0 amitriptyline 25 MG tablet 25 mg PO HS Qty: 0 RF: 0 [PHENERGAN] 25 mg PO PRN PRNQty: 0 RF: 0 prochlorperazine maleate [Compazine] 10 MG tablet 10 mg PO PRN PRNQty: 0 RF: 0 nortriptyline [Pamelor] 10 MG capsule 30 mg PO HS Qty: 0 RF: 0 dicyclomine 10 MG capsule 10 mg PO Q4HP PRNQty: 60 RF: 3 gabapentin [Neurontin] 300 MG capsule 300 mg PO TID Qty: 0 RF: 0 oxybutynin chloride [Ditropan XL] 15 MG tablet extended release 24hr 15 mg PO QDAY Qty: 0 RF: 0 cholecalciferol (vitamin D3) 5,000 UNIT capsule 5,000 unit PO QDAY Qty: 0 RF: 0 meloxicam 15 mg tablet 15 mg PO DAILY Qty: 20 RF: 0 oxycodone-acetaminophen 5-325 mg tablet 1 tab PO Q6H PRN (Reason: acute back pain/sciatica) Qty: 7 RF: 0 Referrals: Genevieve Brooke MD [Primary Care Provider] - (follow up recommended in approx 3 days for recheck) <Christine Brown DO - Last Filed: 07/18/18 07:50> Cosign ED Attending Audraature Attestation: I was immediately available in the department for consultation. This documentation has been reviewed and I agree with assessment and plan. Supervised by Christine Brown, DO
[2018-07-17] MEDS: KETOROLAC 60 MG/2 ML VIAL IM (17:15)
== END 2018-07-17 17:35 | disposition home or self-care (01) ==
PROVIDERS: Emergency Provider Nurse Practitioner; PCP Family Medicine
DX: M10.9 Gout, unspecified (principal); L03.115 Cellulitis of right lower limb
CPT/HCPCS: 73600; 96372; 99282; 99283; J1885

== ENCOUNTER 2020-07-23 15:05 | Emergency (ER) | payer OTHER, MEDICAID, SELFPAY ==
[2020-07-23 15:11] VITALS: BP 135/92; PULSE 108; RESP 18; TEMP 36.3; O2SAT 99
--- NOTE | 2020-07-23 17:45 | ED.BACK ---
HPI - Back Pain/Injury General Chief Complaint: Back Pain/Injury Stated Complaint: back and rib pain, no known injury Time Seen by Provider: 07/23/20 17:45 Source: patient Mode of arrival: Ambulatory Limitations: no limitations History of Present Illness HPI Narrative: Patient is here for evaluation of right-sided flank, right upper quadrant and right-sided right lower quadrant abdominal pain. She states that this is an issue that has been going on for some time but has been worse over the past couple days. Has never been evaluated for it in the past. No rashes. Does not get worse with eating. Not worse with bowel movements or urination. No nausea or vomiting. Has been taking Tylenol and ibuprofen and Flexeril at home for it. Related Data Home Medications Medication Instructions Recorded Confirmed [PHENERGAN] 25 mg PO PRN PRN #0 05/06/16 amitriptyline 25 mg PO HS #0 05/06/16 cyclobenzaprine 10 mg PO PRN PRN #0 05/06/16 nortriptyline [Pamelor] 30 mg PO HS #0 10/19/16 prochlorperazine maleate 10 mg PO PRN PRN #0 10/19/16 [Compazine] gabapentin [Neurontin] 300 mg PO TID #0 12/18/16 cholecalciferol (vitamin D3) 5,000 unit PO QDAY #0 04/19/17 oxybutynin chloride [Ditropan XL] 15 mg PO QDAY #0 04/19/17 Previous Rx's Medication Instructions Recorded dicyclomine 10 mg PO Q4HP PRN #60 cap 10/19/16 meloxicam 15 mg PO DAILY #20 tab 04/30/18 oxycodone-acetaminophen 1 tab PO Q6H PRN #7 tab 04/30/18 cephalexin [Keflex] 500 mg PO BID #20 cap 07/17/18 Allergies Allergy/AdvReac Type Severity Reaction Status Date / Time Sulfa (Sulfonamide Allergy Severe HIVES, Unverified 07/07/17 12:40 Antibiotics) ITCHY [SULFA (SULFONAMIDE THROAT ANTIBIOTICS)] FEELS LIKE IT WILL CLOSE UP hydrocodone [From VICODIN] AdvReac Intermediate DOESN'T Unverified 07/07/17 12:40 GIVE PAIN RELIEF, SEVERE NAUSEA Review of Systems Constitutional Constitutional: Denies fatigue, Denies fever(s) and Denies headache(s) ENT Ears, Nose, Mouth, and Throat: Denies headache(s) Cardiovascular Cardiovascular: Denies chest pain and Denies dyspnea Respiratory Respiratory: Denies dyspnea Gastrointestinal Gastrointestinal: Reports abdominal pain, Denies change in bowel habits, Denies nausea and Denies vomiting Genitourinary Genitourinary: Denies dysuria Genitourinary: Denies dysuria Musculoskeletal Musculoskeletal: Denies back pain and Denies myalgias Integumentary/Breasts Skin/Breast: Denies rash Neurologic Neurologic: Denies behavioral changes and Denies headache(s) Psychiatric Psychiatric: Denies behavioral changes Endocrine Endocrine: Denies fatigue Hematologic/Lymphatic On Anticoagulants: No Allergic/Immunologic Allergic/Immunologic: Denies urticaria Patient History Medical History Chronic migraine Degenerative disc disease, cervical Degenerative disc disease, lumbar Fibromyalgia Herniated lumbar intervertebral disc IBS (irritable bowel syndrome) Overactive bladder Surgical History Status post hysterectomy Family History Child Age: 17 Generalized headaches Child Age: 13 Generalized headaches Social History Smoking Status: Current every day smoker additional social history: nonsmoker, no ETOH Smoking Status: Current every day smoker tobacco type: vaping Exam Initial Vital Signs Initial Vital Signs: Vital Signs Temperature 97.4 F L 07/23/20 15:11 Pulse Rate 108 H 07/23/20 15:11 Respiratory Rate 18 07/23/20 15:11 Blood Pressure 135/92 H 07/23/20 15:11 Pulse Oximetry 99 07/23/20 15:11 Const General: cooperative, comfortable and well developed Limitations: mental status not altered HENMT Head: normal to inspection and normocephalic Eyes General: appearance normal, both eyes and all related structures Resp Effort & Inspection: normal respiratory effort Auscultation: clear to auscultation bilaterally Cardio Rate: regular rate Rhythm: regular rhythm GI Inspection: non-distended Palpation: soft and tender (Right-sided abdomen is right upper quadrant right flank right lower quadran) Back/Spine/Pelvis Back: CVA tenderness right Skin Lesions: no lesions Rashes: no rashes Neuro General: patient alert, patient awake and patient oriented x3 Cognition: normal cognition Speech: speech normal Extrem General: normal to inspection and capillary refill normal Psych Appearance: grossly normal and well kempt Course Vital Signs Vital signs: Vital Signs - 8 hr 07/23/20 15:11 Temperature 97.4 F L Pulse Rate 108 H Respiratory Rate 18 Blood Pressure 135/92 H Pulse Oximetry 99 MDM - Back Pain/Injury Lab Data Attestation: I reviewed the patient's lab results. Labs: Point of Care Testing Test Results Negative Urine Dip Bedside Urine Glucose Negative Bedside Urine Bilirubin - Negative Bedside Urine Ketone - Negative Urine Specific [place] 1.010 Bedside Urine Occult Blood - Negative Bedside Urine pH 6 Bedside Urine Protein - Negative Bedside Urine Urobilinogen - Negative Bedside Urine Nitrite - Negative Bedside Urine Leukocytes - Negative Esterase MDM Narrative Medical decision making narrative: Her urine is negative. I have low suspicion for pyelonephritis or urinary tract infection. Her symptoms are also not consistent with a kidney stone as she has reproducible pain with very light palpation to her right flank and right upper quadrant in whole right side of her abdomen and right lower quadrant. I also have low concern for gallbladder disease. Again because of the location of her discomfort and the fact that she states that it hurts with only very light sensation. Also low suspicion for appendicitis for the same reason. She has no skin rashes over the area concerning for zoster. She has had this pain for a prolonged period of time and I suspect that she would develop a rash by now. Given her clinical presentation of feel that we can hold on further workup for gallbladder disease or appendicitis. Her exam is does not consistent with this type of disease process. Tract provide reassurance to the patient. Informed her that she can continue with the Tylenol and ibuprofen in the muscle relaxers she should talk with her primary doctor about further workup if needed as an outpatient. I tried to explain to her why did not think that we needed this workup done in the emergency department. She became tearful when I told her that Tylenol and ibuprofen is the only medication that we would give for this. We discussed that patient opioids for undifferentiated abdominal pain could complicate the situation because it can cause things like constipation. She was given return precautions. Discharge Plan Departure Patient Disposition: Home Clinical Impression: Acute flank pain Instructions: DI for Flank Pain Activity Restrictions/Additional Instructions: Recommend that you continue with the Tylenol/ibuprofen for the discomfort. Your urine today is unremarkable. I do feel given your presentation that we should hold on a CT scan. Here symptoms are also not consistent with gallbladder disease. Recommend you talk with your primary doctor for follow-up. Return to the emergency department for any new or worsening symptoms. Prescriptions: No Action cyclobenzaprine 10 MG tablet 10 mg PO PRN PRNQty: 0 RF: 0 amitriptyline 25 MG tablet 25 mg PO HS Qty: 0 RF: 0 [PHENERGAN] 25 mg PO PRN PRNQty: 0 RF: 0 prochlorperazine maleate [Compazine] 10 MG tablet 10 mg PO PRN PRNQty: 0 RF: 0 nortriptyline [Pamelor] 10 MG capsule 30 mg PO HS Qty: 0 RF: 0 dicyclomine 10 MG capsule 10 mg PO Q4HP PRNQty: 60 RF: 3 gabapentin [Neurontin] 300 MG capsule 300 mg PO TID Qty: 0 RF: 0 oxybutynin chloride [Ditropan XL] 15 MG tablet extended release 24hr 15 mg PO QDAY Qty: 0 RF: 0 cholecalciferol (vitamin D3) 5,000 UNIT capsule 5,000 unit PO QDAY Qty: 0 RF: 0 cephalexin [Keflex] 500 mg capsule 500 mg PO BID Qty: 20 RF: 0 meloxicam 15 mg tablet 15 mg PO DAILY Qty: 20 RF: 0 oxycodone-acetaminophen 5-325 mg tablet 1 tab PO Q6H PRN (Reason: acute back pain/sciatica) Qty: 7 RF: 0 Referrals: Genevieve Brooke MD [Primary Care Provider] -
[2020-07-23 19:06] VITALS: BP 146/88; PULSE 92; O2SAT 98
[2020-07-23 19:14] VITALS: BP 144/77; PULSE 83; RESP 16; O2SAT 99
== END 2020-07-23 19:16 | disposition home or self-care (01) ==
PROVIDERS: Emergency Provider Emergency Medicine; PCP Family Medicine
DX: R10.9 Unspecified abdominal pain (principal)
CPT/HCPCS: 81003; 81025; 99282